=== PATIENT | male | born 1945 | race Caucasian/White ===

== ENCOUNTER 2017-04-21 03:16 | Inpatient (IN) | payer OTHER ==
[~2017-04-21] VITALS: Ht 180.3 cm; Wt 65.3 kg
[2017-04-21] VITALS (7 sets, daily range): BP systolic 99–148; BP diastolic 63–94
[~2017-04-21 03:16] MED LIST: ALBUTEROL2.5 MG/0.5 IH; ALBUTEROL2.5 MG/31; ANORO ELLIPTA1 EACH INH; ATIVAN0.5 MG PO; BUSPIRONE HCL10 MG PO; CEFDINIR300 MG PO; DELSYM30 MG/5 M1 PO; DOXYCYCLINE 10100 M1 PO; DUONEB 2.5-0.5 M3 ML INH; Duoneb 2.5-0.5 Mg/3 INH; FLOMAX0.4 MG PO; FLONASE 0.05%50 MCG NASAL; HYDROCODONE-AP1 EAC6 PO; LEVAQUIN 500 M500 M2 PO; LEVAQUIN 750 M750 MG PO; MSL20MG/ML PO; MUCINEX DM ER1 EAC1 PO; MUCINEX600 MG PO; NASONEB NASAL1 EACH INH; NEXIUM 40 MG CA40 M1 PO; PREDNISONE 10 M10 M1 PO; PREDNISONE 10 M10 MG PO; PREDNISONE 20 M20 MG PO; PROTONIX40 M1 PO; PROVENTIL HFA6.7 G1 INH; PULMICORT FLEX90 MCG INH; SINGULAIR 10 MG10 M1 PO; TESSALON PERLE100 MG PO; VENTOLIN HFA 1818 GM INH; XANAX 0.5 MG0.5 MG PO; ZYRTEC10 M4 PO
[2017-04-21 03:46] LABS: HEMATOCRIT 45.1 % (42.0-52.0); HEMOGLOBIN 14.6 gm/dL (14.0-18.0); MCH 29.5 pg (26.0-34.0); MCHC 32.4 g/dL (28.0-37.0); MCV 90.8 fL (80.0-100.0); MPV 7.8 fl. (7.2-11.1); NUCLEATED RBCS 0 /100WBC; PLATELET COUNT* 268 thou/uL (150-400); RBC 4.97 mil/uL (4.50-6.00); WBC 18.1 thou/uL (4.0-11.0)
[2017-04-21 03:49] LABS: CALCIUM 8.7 mg/dL (8.5-10.1); CREATININE 1.1 mg/dL (0.6-1.3); POTASSIUM 4.4 mmol/L (3.5-5.1)
[2017-04-21 03:53] LABS: ALBUMIN 3.5 g/dL (3.4-5.0); MAGNESIUM 1.6 mg/dL (1.8-2.4); TOTAL BILIRUBIN 0.8 mg/dL (<0.1-1.0); TOTAL PROTEIN 7.2 g/dL (6.4-8.2)
[2017-04-21 04:39] LABS: ABSOLUTE BASOPHILS 0.2 thou/uL (0.0-0.2); ABSOLUTE EOSINOPHILS 0.2 thou/uL (0.0-0.7); ABSOLUTE LYMPHOCYTES 1.6 thou/uL (0.8-5.3); ABSOLUTE MONOCYTES 1.4 thou/uL (0.0-1.2); ABSOLUTE NEUTROPHILS 14.7 thou/uL (1.6-8.1); PLATELET ESTIMATE ADEQUATE; TOXIC GRANULATION 1+
[2017-04-21 04:47] LABS: BE 2.6 mmol/L (-2 to +3); PCO2 46.1 mmHg (35.0-45.0); URINE BILIRUBIN NEGATIVE (Negative); URINE BLOOD 1+ (Negative); URINE CLARITY CLEAR; URINE COLOR YELLOW; URINE GLUCOSE-RANDOM TRACE (Negative); URINE KETONES NEGATIVE (Negative); URINE LEUKOCYTES-REFLEX NEGATIVE (Negative); URINE NITRITE-REFLEX NEGATIVE (Negative); URINE PROTEIN 1+ (Negative); URINE SPECIFIC GRAVITY >= 1.030 (1.005-1.030); pH 7.402 (7.340-7.450)
[2017-04-21 05:15] LABS: BACTERIA-REFLEX 1-9 Few /HPF (None Seen); CASTS None Seen /LPF (None Seen); CRYSTALS None Seen /LPF (None Seen); MUCUS 4-6 Moderate strn/LPF (None Seen); SQUAMOUS 0-3 Few /LPF (0-3); URINE RBC 3-10 Few /HPF (0-2); URINE WBC-REFLEX 0-5 Rare /HPF (0-5)
--- NOTE | 2017-04-21 06:30 | NUR ---
RECEIVED REPORT FROM ER, ADMITTED TO UNIT. O2 ON PER BIPAP WITH FIO2 AT 35%. CONT TO BE TACHYPNIC. TELEMETRY APPLIED SHOWING ST. SEE ADMISSION ASSESSMENT AND HX. WILL CONT TO MONITOR.
--- NOTE | 2017-04-21 07:25 | NUR ---
CHANGE OF SHIFT, BEDSIDE REPORT GIVEN ASSUMED PATIENT CARE PATIENT SEEN AT BEDSIDE REQUESTING RT TREATMENT RT PAGED
--- NOTE | 2017-04-21 10:10 | EKG ---
[place] [address] ELECTROCARDIOGRAM REPORT Name: SHAN GUERRERO JR Room: [address] ADM IN [facility].#: [id number] Admission: 04/21/17 Attend Phys: Lion Wynn Discharge: Date of : 41 Report #: [id number] THIS REPORT FOR: //name// [facility] ED Test Date: 2017-04-21 Test Time: 03:31:49 Pat Name: SHAN GUERRERO Department: Room: [facility] Gender: M Virtual Assistant: TV : 1945 Requested By: Cyndy Pulido Order Number: [id number] MD: Alexis Linn Measurements Intervals [place] Rate: 125 P: 83 IN: 151 QRS: 102 QRSD: 97 T: 72 QT: 297 QTc: 429 Interpretive Statements Sinus tachycardia LAE, consider biatrial enlargement Right axis deviation Baseline wander in lead(s) II,III,aVF Compared to ECG 11/19/2016 20:13:48 Right-axis deviation now present Sinus rhythm no longer present Atrial premature complex(es) no longer present Myocardial infarct finding no longer present Electronically Signed On 04-21-2017 10:09:42 UPHOLSTERY ESTIMATOR by Alexis Linn [email or web address] <ELECTRONICALLY SIGNED> By: Alexis Linn MD, [facility] 04/21/17 1009 0 033 Alexis Linn MD, [facility] /EPI
--- NOTE | 2017-04-21 12:15 | NUR ---
CM ASSESSMENT: Pt is A&O. Known to this CM from previous hospital stay. Pt resides in an apartment and dtr lives with him. Pt stated that he has been doing better at home. CM could look at Pt can tell that he has put on weight. Pt continues to wear his trilogy and home o2, provided through [employer]. Pt has a walker, cane and wc at home that he can use as needed. Pt states that he is still astranged from his son and hasn't seen his grandkids in several months. Current with [facility], CM will update date [facility] p:[phone] f:[phone]. Hx of HH with [facility]. Hx of skilled at [facility]. Pt has a supportive ex and dtr that are involved in POC. Following for dc needs.
[2017-04-21] MEDS ORDERED: PEPCID20 MG PO (12:19)
[2017-04-22 00:05] VITALS: BP 118/70
[2017-04-22 04:20] VITALS: BP 115/66
[2017-04-22 05:27] LABS: ABSOLUTE LYMPHOCYTES 0.3 thou/uL (0.8-5.3); ABSOLUTE MONOCYTES 0.1 thou/uL (0.0-1.2); ABSOLUTE NEUTROPHILS 8.6 thou/uL (1.6-8.1); BASOPHILS 0.1 %; HEMATOCRIT 40.7 % (42.0-52.0); HEMOGLOBIN 13.6 gm/dL (14.0-18.0); LYMPHOCYTES 3.5 %; MCH 30.1 pg (26.0-34.0); MCHC 33.5 g/dL (28.0-37.0); MCV 89.8 fL (80.0-100.0); MONOCYTES 1.4 %; MPV 7.7 fl. (7.2-11.1); NUCLEATED RBCS 0 /100WBC; PLATELET COUNT* 242 thou/uL (150-400); RBC 4.53 mil/uL (4.50-6.00); RDW-CV 13.3 % (10.5-14.5); WBC 9.1 thou/uL (4.0-11.0)
[2017-04-22 05:36] LABS: CALCIUM 8.7 mg/dL (8.5-10.1); CREATININE 0.9 mg/dL (0.6-1.3); MAGNESIUM 2.3 mg/dL (1.8-2.4); POTASSIUM 4.4 mmol/L (3.5-5.1); TOTAL PROTEIN 6.1 g/dL (6.4-8.2)
--- NOTE | 2017-04-22 05:51 | NUR ---
PT IS ABLE TO COMMUNICATE HIS NEEDS TO STAFF EFFECTIVELY. HE HAS DENIED THE NEED FOR PAIN MEDICATION UP TO THIS TIME. PT WORE BIPAP FOR APPROXIMATELY 5 HRS OVERNIGHT BEFORE REQUESTING TO HAVE IT TAKEN OFF.
[2017-04-22 06:23] LABS: BE 2.5 mmol/L (-2 to +3); HCO3 26.1 mmol/L (22.0-26.0); PO2 84.2 mmHg (75.0-100.0); pH 7.466 (7.340-7.450)
--- NOTE | 2017-04-22 07:30 | NUR ---
CHANGE OF SHIFT, BEDSIDE REPORT GIVEN PATIENT SEEN AT BEDSIDE PATIENT SITTING UP IN BED, NO REQUESTS ASSUMED PATIENT CARE
[2017-04-22 08:00] VITALS: BP 106/69
[2017-04-22 12:00] VITALS: BP 110/64
[2017-04-22 17:00] VITALS: BP 126/81
--- NOTE | 2017-04-22 19:40 | NUR ---
PATIENT REMAINS A AND O X 4 SR LUNGS COARSE/WHEEZES/DIM O2 3L NC O2 SATS MID 90S BIPAP AT HS GOOD APPETITE LAST BM TODAY GOOD UO USES URINAL YELLOW URINE UP WITH STANDBY SOA WITH EXERTION NO C/O PAIN TODAY REF SCDS IV 20 GA SL L AC CALL LIGHT IN REACH AND INSTRUCTION GIVEN AND FOLLOWED NEW ORDERS TODAY FOR CT OF CHEST
[2017-04-22 20:12] VITALS: BP 126/75
[2017-04-23] VITALS (7 sets, daily range): BP systolic 94–154; BP diastolic 59–84
[2017-04-23 06:15] LABS: ABSOLUTE LYMPHOCYTES 0.2 thou/uL (0.8-5.3); ABSOLUTE MONOCYTES 0.4 thou/uL (0.0-1.2); ABSOLUTE NEUTROPHILS 11.6 thou/uL (1.6-8.1); HEMATOCRIT 36.7 % (42.0-52.0); HEMOGLOBIN 12.1 gm/dL (14.0-18.0); LYMPHOCYTES 1.8 %; MCH 29.8 pg (26.0-34.0); MCHC 33.1 g/dL (28.0-37.0); MONOCYTES 3.3 %; MPV 7.9 fl. (7.2-11.1); NUCLEATED RBCS 0 /100WBC; PLATELET COUNT* 237 thou/uL (150-400); POLYS 94.9 %; RBC 4.08 mil/uL (4.50-6.00); RDW-CV 13.1 % (10.5-14.5); WBC 12.2 thou/uL (4.0-11.0)
[2017-04-23 06:42] LABS: ALBUMIN 2.8 g/dL (3.4-5.0); CALCIUM 8.8 mg/dL (8.5-10.1); CREATININE 0.9 mg/dL (0.6-1.3); POTASSIUM 4.4 mmol/L (3.5-5.1); TOTAL BILIRUBIN 0.4 mg/dL (<0.1-1.0); TOTAL PROTEIN 5.7 g/dL (6.4-8.2)
--- NOTE | 2017-04-23 07:58 | NUR ---
PT IS ABLE TO COMMUNICATE HIS NEEDS TO STAFF EFFECTIVELY. CURRENT PAIN MEDICATION REGIMEN HAS BEEN ADEQUATE FOR CONTROLLING HIS PAIN UP TO THIS TIME. PT WORE BIPAP FOR APPROXIMAYELY 6 HRS OVERNIGHT. POSSIBLE DISCHARGE TODAY OR TOMORROW.
[2017-04-24 04:20] VITALS: BP 112/60
[2017-04-24 05:25] LABS: ABSOLUTE LYMPHOCYTES 0.2 thou/uL (0.8-5.3); ABSOLUTE MONOCYTES 0.3 thou/uL (0.0-1.2); ABSOLUTE NEUTROPHILS 11.6 thou/uL (1.6-8.1); HEMOGLOBIN 12.2 gm/dL (14.0-18.0); LYMPHOCYTES 1.5 %; MCH 29.7 pg (26.0-34.0); MCV 90.1 fL (80.0-100.0); MONOCYTES 2.7 %; NUCLEATED RBCS 0 /100WBC; PLATELET COUNT* 266 thou/uL (150-400); POLYS 95.8 %; RBC 4.11 mil/uL (4.50-6.00); RDW-CV 13.5 % (10.5-14.5); WBC 12.1 thou/uL (4.0-11.0)
[2017-04-24 05:45] LABS: ALBUMIN 2.8 g/dL (3.4-5.0); CALCIUM 8.9 mg/dL (8.5-10.1); CREATININE 0.9 mg/dL (0.6-1.3); POTASSIUM 4.2 mmol/L (3.5-5.1); TOTAL BILIRUBIN 0.4 mg/dL (<0.1-1.0); TOTAL PROTEIN 6.2 g/dL (6.4-8.2)
--- NOTE | 2017-04-24 07:58 | NUR ---
PT IS ABLE TO COMMUNICATE HIS NEEDS TO STAFF EFFECTIVELY. CURRENT PAIN MEDICATION REGIMEN HAS BEEN ADEQUATE FOR CONTROLLING HIS PAIN UP TO THIS TIME. PT WORE BIPAP OVERNIGHT. LIKELY DISCHARGE TODAY.
[2017-04-24 08:15] VITALS: BP 136/73
--- NOTE | 2017-04-24 09:37 | NUR ---
CM contacted Rhiannon at [facility], informed that Pt reports having issues with his Trilogy, per Rhiannon, RT will reach out to Pt to attempt to remedy the issues that he is having with his trilogy. Anticipate dc to home today. Following.
[2017-04-24 11:38] VITALS: BP 124/65
--- NOTE | 2017-04-24 12:16 | NUR ---
ASSUMED PT CARE AT 0730, FULL ASSESMENT DONE CHARTED. PT A/O X4, C/O PAIN IN LOW BACK, DOES NOT REQUEST PAIN MEDS. UP SBA IN ROOM, SATS 94% ON 3L, CONCERNED ABOUT HOME BIPAP NOT WORKING, WORKING WITH CM TO HAVE [facility] COME LOOK AT IT BEFORE PT DISCHARGES. VSS, SR ON THE MONITOR. FALL PRECATUIOINS IN PLACE, CALL LIGHT IN REACH. WILL CONTINUE WITH PLAN OF CARE.
[2017-04-24] MEDS ORDERED: LEVAQUIN 750 M750 MG PO (13:52)
[2017-04-24] MEDS ORDERED: NYSTATIN TOP (13:52)
[2017-04-24] MEDS ORDERED: PREDNISONE 10 M10 MG PO (13:53)
[2017-04-24 13:59] VITALS: BP 124/65
== END 2017-04-24 14:31 | disposition home or self-care (01) | DRG 189 ==
LOC: M.ERS 03:16 → M.2W 04:41 → M.TBA-ER 04:41 → M.2W 05:13
PROVIDERS: Personal Emergency Response Attendant; ADMIT Internal Medicine
PROC: 5A09357 Assistance with Respiratory Ventilation, Less than 24 Consecutive Hours, Continuous Positive Airway Pressure (ICD-10-PCS; principal; 2017-04-21)
PROC: 5A09357 Assistance with Respiratory Ventilation, Less than 24 Consecutive Hours, Continuous Positive Airway Pressure (ICD-10-PCS; 2017-04-22)
PROC: 5A09357 Assistance with Respiratory Ventilation, Less than 24 Consecutive Hours, Continuous Positive Airway Pressure (ICD-10-PCS; 2017-04-23)
DX: J96.22 Acute and chronic respiratory failure with hypercapnia (principal); J44.1 Chronic obstructive pulmonary disease with (acute) exacerbation; E44.0 Moderate protein-calorie malnutrition; R65.10 Systemic inflammatory response syndrome (SIRS) of non-infectious origin without acute organ dysfunction; J96.21 Acute and chronic respiratory failure with hypoxia; G89.29 Other chronic pain; K21.9 Gastro-esophageal reflux disease without esophagitis; E83.42 Hypomagnesemia; M54.9 Dorsalgia, unspecified; Z68.20 Body mass index [BMI] 20.0-20.9, adult; Z79.899 Other long term (current) drug therapy; Z82.49 Family history of ischemic heart disease and other diseases of the circulatory system; Z87.891 Personal history of nicotine dependence

== ENCOUNTER 2017-06-10 01:12 | Inpatient (IN) | payer OTHER ==
[2017-06-10] VITALS (7 sets, daily range): BP systolic 112–138; BP diastolic 71–87
[~2017-06-10] VITALS: Ht 175.3 cm; Wt 60.8 kg
[~2017-06-10 01:12] MED LIST changes: +NYSTATIN TOP; +PEPCID20 MG PO
[2017-06-10 01:41] LABS: HEMATOCRIT 44.2 % (42.0-52.0); HEMOGLOBIN 14.7 gm/dL (14.0-18.0); MCHC 33.2 g/dL (28.0-37.0); MCV 90.3 fL (80.0-100.0); MPV 7.8 fl. (7.2-11.1); NUCLEATED RBCS 0 /100WBC; PLATELET COUNT* 243 thou/uL (150-400); RDW-CV 14.2 % (10.5-14.5); WBC 16.3 thou/uL (4.0-11.0)
[2017-06-10 01:59] LABS: APTT 26.5 Seconds (25.0-31.3); INR 1.1; PROTIME 10.5 Seconds (9.20-11.50)
[2017-06-10 02:01] LABS: ANION GAP 12 mmol/L (7-16); BUN 20 mg/dL (7-18); CALCIUM 9.6 mg/dL (8.5-10.1); CHLORIDE 103 mmol/L (98-107); CO2 28 mmol/L (21-32); GLUCOSE 119 mg/dL (70-99); POTASSIUM 4.3 mmol/L (3.5-5.1); SODIUM 143 mmol/L (136-145)
[2017-06-10] MEDS ORDERED: PREDNISONE 5 MG5 M1 PO (02:02)
[2017-06-10 02:15] LABS: ALBUMIN 3.8 g/dL (3.4-5.0); ALKALINE PHOSPHATASE 60 U/L (46-116); LIPASE 52 U/L (73-393); MAGNESIUM 1.9 mg/dL (1.8-2.4); NT-PRO BRAIN NAT PEPTIDE 132 pg/mL (<300); SGOT 20 U/L (15-37); SGPT 32 U/L (30-65); TOTAL BILIRUBIN 0.8 mg/dL (<0.1-1.0); TOTAL PROTEIN 7.6 g/dL (6.4-8.2); TROPONIN-I LEVEL <0.06 ng/mL (<0.06)
[2017-06-10 03:08] LABS: ABSOLUTE LYMPHOCYTES 0.8 thou/uL (0.8-5.3); ABSOLUTE MONOCYTES 1.1 thou/uL (0.0-1.2); ABSOLUTE NEUTROPHILS 14.3 thou/uL (1.6-8.1)
[2017-06-10 03:09] LABS: PLATELET ESTIMATE ADEQUATE
--- NOTE | 2017-06-10 08:37 | EKG ---
[place] [address] ELECTROCARDIOGRAM REPORT Name: SHAN GUERRERO JR Room: [address] IN [facility].#: [id number] Admission: 06/10/17 Attend Phys: Lamont Conrad MD Discharge: Date of : 41 Report #: [id number] THIS REPORT FOR: //name// [facility] ED Test Date: 2017-06-10 Test Time: 01:22:02 Pat Name: SHAN GUERRERO Department: Room: Gender: Aboriginal Liaison Officer: JAISON Payne : 1945 Requested By: David Ortiz Order Number: [id number] MD: Eduin Carnes Measurements Intervals [place] Rate: 108 P: 96 ID: 133 QRS: 109 QRSD: 89 T: 72 QT: 323 QTc: 433 Interpretive Statements Sinus tachycardia Right axis deviation Compared to ECG 04/21/2017 03:31:49 No significant changes Electronically Signed On 06-10-2017 8:36:58 CDT by Eduin Carnes [email or web address] <ELECTRONICALLY SIGNED> By: Eduin Carnes MD, [facility] 06/10/17 0836 012 012 Eduin Carnes MD, FACC /EPI
--- NOTE | 2017-06-10 19:25 | NUR ---
RECEIVED REPORT AND ASSUMED CARE AT 0820. PT WAS TRANSFERED FROM ER TO RM 202 BY NURSING STAFF. VSS, PT MED SURG STATUS. PT ON 4L NC DURING THE DAY. PT BROUGHT HIS TRILOGY BREATHING MACHINE WITH HIM AND IS IN HIS ROOM FOR WEAR AT [facility]. PT SCREENED POSITIVE FOR SEPSIS, NOTIFIED AND REPORTED BACK TO THIS NURSE THAT THE PT IS NOT SEPTIC, POS SCREEN IS RESULT OF COPD EXACERBATION. PT IS UP WITH ASSIST TO BSC. SOA ON EXERTION. PLAN OF CARE DISCUSSED WITH PT, VERBALIZED UNDERSTANDING. BED IN LOWEST POSITION, CALL LIGHT WITHIN REACH.NURSING WILL CONTINUE TO MONITOR
--- NOTE | 2017-06-11 02:16 | NUR ---
ASSUMED PT CARE AT 19:15 . P IS ALERT AWAKE ORIENTED X4. VITAL SIGNS TAKEN RESULTS ARE WITHIN NORMAL LIMIT. PT IS PLEASANT, MED/SURG ON 3 L NC SATURATION IS 96. SAYS HE WANTS TO WEAR HIS BIPAP MACHINE AT NIGHT. NO COMPLAIN ABOUT PAIN AT THIS TIME. HE REQUESTED SOME IMODIUM BECAUSE HE IS PASSING LOT OF FLATUS AND DOES NOT WANT TO EXPERIENCE DIARRHEA. IMODIUM WAS ADMINISTERED ORDERED BY LAWYERS. ASSESSMENT WAS PERFORMED. REFER TO CHART. IV LINE IS PATENT. MEDICATION WAS ADMINISTERED ORDERED AND TRILOGY MACHINE WAS CONNECTED TO PRIOR TO BED TIME. PT IS NOW RESTING IN BED WITH TRILOGY MACHINE DELIVERING 3 L OF OXYGNEN.
[2017-06-11 04:29] LABS: HEMATOCRIT 40.8 % (42.0-52.0); HEMOGLOBIN 13.9 gm/dL (14.0-18.0); MCH 30.1 pg (26.0-34.0); MCV 88.5 fL (80.0-100.0); RBC 4.61 mil/uL (4.50-6.00); RDW-CV 14.1 % (10.5-14.5); WBC 13.2 thou/uL (4.0-11.0)
[2017-06-11 08:00] VITALS: BP 112/65
--- NOTE | 2017-06-11 11:14 | NUR ---
ASSUMED CARE OF PT AT 0730. PT RESTING IN BED. PT A&0X4, DENIES ANY PAIN AT THIS TIME. PT MED SURG STATUS. PT ON 2L NC SAT 96%. PT STATES HE HAS SHORT OF BREATH WITH ACTIVITY AND TAKES AWHILE TO GET HIS BREATH BACK. PT HAD REPEAT CXR THIS AM-REFER TO RESULTS. DR ASHLEY HERE TO SEE PT. IV STEROIDS DECREASED TO BID. PT RECEIVING IV ABX WELL. PT UP SBA TO BATHROOM. PT GOAL IS TO INCREASE ACTIVITY- AMBULATE IN [place] AND UP TO CHAIR FOR MEALS. AM ASSESSMENT CHARTED. MEDICATIONS PER APR. PT REPOSITIONS SELF. HOURLY ROUNDING OBSERVED. BED IN LOW POSITION. CALL LIGHT WITHIN REACH. WILL CONTINUE PLAN OF CARE.
[2017-06-11 15:34] VITALS: BP 109/68
--- NOTE | 2017-06-11 17:20 | NUR ---
NO ACUTE CHANGES THROUGHOUT SHIFT. REFER TO CHARTING. PT FAMILY AT BEDSIDE THIS AFTERNOON. PT UP WITH 1 ASSIST TO BATHROOM-PT AMBULATED TO BATHROOM TODAY MULTIPLE TIMES, PT GETS SHORT OF BREATH WITH EXERTION. PT AMBULATED IN ROOM WITH NURSING STANDAY-TOLERATED FAIR. CONTINUES TO BE ON 2-3L NC SAT UPPER 90'S. PT MED SURG STATUS. POSSIBLE DISCHARGE HOME TOMORROW. MEDICATIONS PER APR. PT REPOSITIONS SELF. HOURLY ROUNDING OBSERVED. BED IN LOW POSITION. CALL LIGHT WITHIN REACH. WILL CONTINUE PLAN OF CARE.
[2017-06-11 20:00] VITALS: BP 114/70
--- NOTE | 2017-06-11 23:22 | NUR ---
ASSUMED PT CARE AT 19:15 . RECEIVED REPORT FROM NURSE. PT IS ALERT AWAKE ORIETED X 4. VITAL SIGNS WITHIN NORMAL LIMIT. PT DOES NOT COMPLAIN OF PAIN A THIS MOMENT. OXYGENATION IS 96 % ON 3 L NC. BRETAHING PATTERN IS REGULAR .ASSESSMENT PERFORMED. REFER TO CHART. MEDICATION WERE AMINISTERED. PT IS NOT WEARING BIPAP MACHINE AND RESTING IN BED. MED/SURG PT. WILL CONTINUE TO MONITOR
[2017-06-12 00:06] VITALS: BP 105/68
[2017-06-12 05:52] LABS: CALCIUM 8.6 mg/dL (8.5-10.1); CREATININE 0.8 mg/dL (0.6-1.3); MAGNESIUM 2.2 mg/dL (1.8-2.4); POTASSIUM 4.2 mmol/L (3.5-5.1)
[2017-06-12] MEDS ORDERED: ADVAIR HFA 230M12 GM INH (08:01)
[2017-06-12] MEDS ORDERED: AZITHROMYCIN500 MG PO (08:01)
[2017-06-12] MEDS ORDERED: CEFDINIR300 MG PO (08:01)
[2017-06-12] MEDS ORDERED: PREDNISONE 10 M10 M1 PO (08:01)
[2017-06-12 08:03] VITALS: BP 117/67
[2017-06-12 09:01] VITALS: BP 117/67
--- NOTE | 2017-06-12 09:20 | NUR ---
Pt known to this CM. Pt discharging to home today, orders faxed to [facility] per Pt's request. Pt continues to use a walker and trilogy at home. Pt also has a wc that he can use if needed. Pt's dtr continues to reside with him and assist as needed. Dtr to corn picker Pt today.
--- NOTE | 2017-06-12 09:30 | NUR ---
ASSUMED CARE OF PATIENT AFTER REPORT THIS MORNING. PATIENT AWAKE, ALERT, AND ORIENTED APPROPRIATELY. PHYSICAL ASSESSMENT COMPLETED AND CHARTED. NO COMPLAINTS OF PAIN. GIVEN SCHEDULED MEDICATIONS, SEE EMAR FOR DOCUMENTATION. VITAL SIGNS STABLE. OXYGEN SATURATION WITHIN NORMAL LIMITS ON 3 LPM PER NASAL CANULA. PATIENT TRANSFERS AND AMBULATES WITH ASSISTANCE FROM STAFF. USES CALL LIGHT APPROPRIATELY. DENIES NEEDS AT THIS TIME. CALL LIGHT WITHIN REACH. NURSING WILL CONTINUE TO MONITOR.
--- NOTE | 2017-06-12 13:03 | NUR ---
RECEIVED ORDERS TO DISCHARGE PATIENT HOME WITH HOME HEALTH. DISCHARGE PAPERWORK COMPLETED AND DISCUSSED WITH PATIENT. SIGNED BY ALL APPROPRIATE PARTIES. GIVEN PRESCRIPTIONS AND INFORMATION REGARDING THEM. IV DISCONTINUED. PATIENT DISCHARGED AT 1300 WITH DAUGHTER. ESCORTED TO FRONT DOOR VIA WHEELCHAIR BY THIS NURSE.
== END 2017-06-12 13:15 | disposition home health service (06) | DRG 189 ==
LOC: M.ERS 01:12 → M.2W 02:22 → M.TBA-ER 02:22 → M.2W 08:18
PROVIDERS: Family Medicine; ADMIT Internal Medicine
PROC: 5A09357 Assistance with Respiratory Ventilation, Less than 24 Consecutive Hours, Continuous Positive Airway Pressure (ICD-10-PCS; principal; 2017-06-10)
DX: J96.21 Acute and chronic respiratory failure with hypoxia (principal); J44.1 Chronic obstructive pulmonary disease with (acute) exacerbation; J44.0 Chronic obstructive pulmonary disease with (acute) lower respiratory infection; J20.9 Acute bronchitis, unspecified; G89.29 Other chronic pain; M25.569 Pain in unspecified knee; M25.519 Pain in unspecified shoulder; Z82.49 Family history of ischemic heart disease and other diseases of the circulatory system; Z87.891 Personal history of nicotine dependence; Z79.899 Other long term (current) drug therapy

== ENCOUNTER 2017-07-15 00:12 | Emergency (ER) | payer OTHER ==
[~2017-07-15] VITALS: Ht 175.3 cm; Wt 63.5 kg
[~2017-07-15 00:12] MED LIST changes: +ADVAIR HFA 230M12 GM INH; +AZITHROMYCIN500 MG PO; +PREDNISONE 5 MG5 M1 PO
[2017-07-15] MEDS ORDERED: MYRBETRIQ25 MG PO (00:28)
[2017-07-15 01:10] LABS: HEMATOCRIT 39.7 % (42.0-52.0); HEMOGLOBIN 13.1 gm/dL (14.0-18.0); MCH 29.8 pg (26.0-34.0); MCHC 33.1 g/dL (28.0-37.0); MCV 90.3 fL (80.0-100.0); MPV 6.8 fl. (7.2-11.1); NUCLEATED RBCS 0 /100WBC; PLATELET COUNT* 249 thou/uL (150-400); RDW-CV 14.4 % (10.5-14.5); WBC 6.7 thou/uL (4.0-11.0)
[2017-07-15 01:19] LABS: CALCIUM 8.9 mg/dL (8.5-10.1); CREATININE 0.8 mg/dL (0.6-1.3)
[2017-07-15 01:24] LABS: ALBUMIN 2.8 g/dL (3.4-5.0); TOTAL BILIRUBIN 0.3 mg/dL (<0.1-1.0); TOTAL PROTEIN 6.6 g/dL (6.4-8.2)
[2017-07-15 02:27] VITALS: BP 127/78
[2017-07-15 02:27] LABS: ABSOLUTE BASOPHILS 0.1 thou/uL (0.0-0.2); ABSOLUTE EOSINOPHILS 0.1 thou/uL (0.0-0.7); ABSOLUTE LYMPHOCYTES 0.7 thou/uL (0.8-5.3); ABSOLUTE MONOCYTES 0.3 thou/uL (0.0-1.2); ABSOLUTE NEUTROPHILS 5.4 thou/uL (1.6-8.1); ANISOCYTOSIS Occasional; PLATELET ESTIMATE ADEQUATE; TOXIC GRANULATION 1+
--- NOTE | 2017-07-15 11:29 | EKG ---
[place] [address] ELECTROCARDIOGRAM REPORT Name: SHAN GUERRERO JR [id number] Admission: 07/15/17 Attend Phys: Discharge: 07/15/17 Date of : 41 Report #: [id number] THIS REPORT FOR: //name// [facility] ED Test Date: 2017-07-15 Test Time: 00:19:30 Pat Name: SHAN IBARRAESTUARDO Department: Room: Gender: M Hardware Installation Coordinator: [place] : 1945 Requested By: Cyndy Pulido Order Number: [id number] MD: Alexis Linn Measurements Intervals [place] Rate: 90 P: 80 [place]: 151 QRS: 98 QRSD: 87 T: 69 QT: 343 QTc: 420 Interpretive Statements Sinus rhythm Right axis deviation Abnormal R-wave progression, late transition Compared to ECG 06/10/2017 01:22:02 Sinus tachycardia no longer present Electronically Signed On 07-15-2017 11:28:45 CDT by Alexis Linn [email or web address] <ELECTRONICALLY SIGNED> By: Alexis Linn MD, [facility] 07/15/17 1128 0019 Alexis Linn MD, FACC /EPI
== END 2017-07-15 02:53 | disposition home or self-care (01) ==
LOC: M.ERS 00:12
PROVIDERS: Personal Emergency Response Attendant
DX: J44.1 Chronic obstructive pulmonary disease with (acute) exacerbation (principal); G89.29 Other chronic pain; M54.9 Dorsalgia, unspecified; M25.519 Pain in unspecified shoulder; M25.569 Pain in unspecified knee

== ENCOUNTER 2017-08-21 11:05 | Inpatient (IN) | payer OTHER ==
[~2017-08-21] VITALS: Ht 177.8 cm; Wt 63.0 kg
[~2017-08-21 11:05] MED LIST changes: +MYRBETRIQ25 MG PO
[2017-08-21 11:27] LABS: HEMATOCRIT 41.6 % (42.0-52.0); HEMOGLOBIN 13.6 gm/dL (14.0-18.0); MCH 29.7 pg (26.0-34.0); MCHC 32.7 g/dL (28.0-37.0); MCV 90.6 fL (80.0-100.0); MPV 6.9 fl. (7.2-11.1); NUCLEATED RBCS 0 /100WBC; PLATELET COUNT* 340 thou/uL (150-400); RBC 4.59 mil/uL (4.50-6.00); RDW-CV 13.6 % (10.5-14.5); WBC 13.5 thou/uL (4.0-11.0)
[2017-08-21 11:34] LABS: ANION GAP 2 mmol/L (7-16); BUN 13 mg/dL (7-18); CALCIUM 8.8 mg/dL (8.5-10.1); CHLORIDE 105 mmol/L (98-107); CO2 33 mmol/L (21-32); CREATININE 0.7 mg/dL (0.6-1.3); GLUCOSE 97 mg/dL (70-99); POTASSIUM 3.5 mmol/L (3.5-5.1); SODIUM 140 mmol/L (136-145)
[2017-08-21 11:44] LABS: ALBUMIN 2.9 g/dL (3.4-5.0); ALKALINE PHOSPHATASE 72 U/L (46-116); LIPASE 90 U/L (73-393); MAGNESIUM 1.6 mg/dL (1.8-2.4); NT-PRO BRAIN NAT PEPTIDE 158 pg/mL (<300); SGOT 17 U/L (15-37); SGPT 25 U/L (30-65); TOTAL BILIRUBIN 0.6 mg/dL (<0.1-1.0); TROPONIN-I LEVEL <0.06 ng/mL (<0.06)
[2017-08-21 13:26] LABS: ABSOLUTE BASOPHILS 0.1 thou/uL (0.0-0.2); ABSOLUTE EOSINOPHILS 0.1 thou/uL (0.0-0.7); ABSOLUTE LYMPHOCYTES 0.7 thou/uL (0.8-5.3); ABSOLUTE MONOCYTES 0.9 thou/uL (0.0-1.2); ABSOLUTE NEUTROPHILS 11.6 thou/uL (1.6-8.1)
[2017-08-21 13:28] LABS: ANISOCYTOSIS 1+; PLATELET ESTIMATE ADEQUATE
[2017-08-21 14:30] VITALS: BP 105/68
[2017-08-21 15:00] VITALS: BP 114/80
--- NOTE | 2017-08-21 15:00 | NUR ---
ADMIT NOTE - PT ADMITTED FROM ER WITH COPD EXAC AND PNEUMONIA. STATED HE WOKE UP THIS AM WITH DYSPNEA AND BROUGHT BY AMBULANCE. IV IN LT FA SL. HOME O2 AT 3L NC AND ADMITTED WITH 3L NC. DTR BROUGHT HOME CPAP MACHINE. ORIENTED TO ROOM AND CALL LIGHT. NO QUESTIONS.
[2017-08-21 21:00] VITALS: BP 118/68
[2017-08-22 00:04] VITALS: BP 124/71
[2017-08-22 03:39] VITALS: BP 131/74
[2017-08-22 05:05] LABS: HEMATOCRIT 36.8 % (42.0-52.0); HEMOGLOBIN 12.2 gm/dL (14.0-18.0); MCH 30.2 pg (26.0-34.0); MCHC 33.1 g/dL (28.0-37.0); MCV 91.3 fL (80.0-100.0); MPV 7.6 fl. (7.2-11.1); RBC 4.03 mil/uL (4.50-6.00); RDW-CV 13.8 % (10.5-14.5); WBC 7.4 thou/uL (4.0-11.0)
[2017-08-22 05:23] LABS: CREATININE 0.7 mg/dL (0.6-1.3); MAGNESIUM 1.9 mg/dL (1.8-2.4)
[2017-08-22 05:29] LABS: POTASSIUM 4.6 mmol/L (3.5-5.1)
--- NOTE | 2017-08-22 06:52 | NUR ---
PATIENT HAS SLEPT OFF AND ON BUT RESTLESS DURING THE NIGHT. VSS ON 3L 02 VIA NASAL CANNULA. NO C/O PAIN. CPAP ON DURING THE NIGHT. RESPIRATORY TREATMENTS GIVEN FROM RESPIRATORY DEPT. MEDICATIONS GIVEN AND CHARTED. IV IN LEFT FOREARM-NS @ 100ML/HR. PATIENT INSTRUCTED TO USE CALL LIGHT WHEN NEEDING ASSISTANCE. HOURLY ROUNDS MADE. WILL CONTINUE WITH PLAN OF CARE AND NURSING TO MONITOR.
[2017-08-22 07:38] LABS: URINE BILIRUBIN NEGATIVE (Negative); URINE BLOOD TRACE (Negative); URINE CLARITY CLEAR; URINE COLOR YELLOW; URINE GLUCOSE-RANDOM TRACE (Negative); URINE KETONES NEGATIVE (Negative); URINE LEUKOCYTES NEGATIVE (Negative); URINE NITRITE NEGATIVE (Negative); URINE PROTEIN NEGATIVE (Negative); URINE UROBILINOGEN 0.2 E.U./dl (0.2-1.0)
[2017-08-22 11:01] VITALS: BP 114/70
--- NOTE | 2017-08-22 13:37 | EKG ---
[place] [address] ELECTROCARDIOGRAM REPORT Name: SHAN GUERRERO JR Room: [address] IN [facility]#: [id number] Admission: 08/21/17 Attend Phys: Minerva Joseph MD Discharge: Date of : 41 Report #: [id number] THIS REPORT FOR: //name// [facility] ED Test Date: 2017-08-21 Test Time: 11:09:06 Pat Name: SHAN GUERRERO Department: Room: Gender: Agile Scrum Coach: Elmer WILEY : 1945 Requested By: Karan Linton Order Number: [id number] MD: Joseph Brown Measurements Intervals [place] Rate: 111 P: 74 [place]: 131 QRS: 105 QRSD: 109 T: 47 QT: 311 QTc: 423 Interpretive Statements Sinus tachycardia Left posterior fascicular block Abnormal R-wave progression, late transition Compared to ECG 07/15/2017 00:19:30 Left posterior fascicular block now present Sinus rhythm no longer present Right-axis deviation no longer present Electronically Signed On 08-22-2017 13:37:43 CDT by Joseph Brown [email or web address] <ELECTRONICALLY SIGNED> By: Joseph Brown MD, FACC 08/22/17 1337 1109 1109 Joseph Brown MD, FAC /EPI
[2017-08-22 15:46] VITALS: BP 131/74
--- NOTE | 2017-08-22 16:11 | NUR ---
SPOKE WITH PT.AND DAUGHTER,KEVIN. KEVIN LIVES WITH PT. PT.WAS ALERT AND ORIENTED. HE SAID HE IS FAIRLY INDEPENDENT. THINGS TAKE HIM LONGER BECAUSE OF HIS SOA WITH HIS COPD. HAS O2 AND TRILOGY THROUGH [facility]. HE NO LONGER HAS HOME HEALTH. HE JUST HAS [facility]. HE REALLY LIKES THE PROFESSOR OF COMMUNICATION (KARY) AND COIN COLLECTOR. HE PLANS TO RETURN HOME AT DISCHARGE AND CONTINUE WITH PALLIATIVE CARE.
--- NOTE | 2017-08-22 18:08 | NUR ---
PATIENT HAS BEEN ALERT AND ORIENTED TODAY. UP IN ROOM ENCOURAGED TO GET AND WALK AROUND PATIENT IS ANGRY ABOUT THE ENCOURAGEMENT TO GET UP. VITAL SIGNS HAVE BEEN STABLE ON 3 LITERS OF OXYGEN. NO COMPLAINTS OF ANY PAIN TODAY, CALL LIGHT IS IN REACH, WILL CONTINUE TO MONITOR.
[2017-08-22 21:20] VITALS: BP 137/67
[2017-08-23] VITALS: BP 130/78
[2017-08-23 04:37] VITALS: BP 118/70
[2017-08-23 04:58] LABS: ABSOLUTE LYMPHOCYTES 0.3 thou/uL (0.8-5.3); ABSOLUTE MONOCYTES 0.3 thou/uL (0.0-1.2); ABSOLUTE NEUTROPHILS 15.4 thou/uL (1.6-8.1); BASOPHILS 0.1 %; HEMATOCRIT 39.7 % (42.0-52.0); HEMOGLOBIN 12.7 gm/dL (14.0-18.0); MCH 29.2 pg (26.0-34.0); MCV 91.3 fL (80.0-100.0); MONOCYTES 1.8 %; MPV 7.8 fl. (7.2-11.1); NUCLEATED RBCS 0 /100WBC; PLATELET COUNT* 328 thou/uL (150-400); POLYS 96.1 %; RBC 4.35 mil/uL (4.50-6.00); RDW-CV 13.6 % (10.5-14.5)
--- NOTE | 2017-08-23 08:24 | NUR ---
PATIENT HAS SLEPT OFF AND ON DURING THE NIGHT. VSS ON 3L 02 VIA NASAL CANNULA. CPAP ON AT NIGHT WHILE SLEEPING. LUNGS ARE DIMINISHED WITH SLIGHT WHEEZING. PATIENT IS UP WITH SBA AND USES BEDSIDE URINAL DURING THE NIGHT. MEDICATIONS GIVEN ORDERED AND CHARTED. PATIENT INSTRUCTED TO USE CALL LIGHT WHEN NEEDING ASSISTANCE. HOURLY ROUNDS MADE. WILL CONTINUE WITH PLAN OF CARE AND NURSING TO MONITOR.
[2017-08-23 09:20] VITALS: BP 130/86
--- NOTE | 2017-08-23 17:07 | NUR ---
ASSUMED CARE OF PATIENT AFTER MORNING REPORT. ALERT AND ORIENTED X4. ASSESSMENT COMPLETED AND CHARTED. VSS ON 3 LITERS 02. PATIENT HAS HAS NO COMPLAINTS OF PAIN THIS SHIFT. SOA UPON EXERTION BUT STABALIZES WITH REST. ANTIBIOTICS INFUSED ORDERED. IV INFILTRATED IN THE LEFT FOREARM, NEW LINE STARTED IN THE RIGHT FOREARM, REMAINS PATENT WITH FLUSHES. NO COMPLAINTS AT THIS TIME, RESTING COMFORTABLY IN BED AT TIS TIME. HOURLY ROUNDS MAINTAINED, CALL LIGHT IN REACH., NURSING WILL CONTINUE TO MONITOR.
[2017-08-23 17:41] VITALS: BP 133/82
[2017-08-24] VITALS: BP 126/77
--- NOTE | 2017-08-24 06:58 | NUR ---
PT SLEPT FOR ABOUT 5 HOURS WITH TRILOGY ON OVERNIGHT. RT TX GIVEN ORDERED. USING URINAL TO VOID OVERNIGHT. O2 3L. KHAN. RFA SL. DENIES PAIN AND PROBLEMS. NO LABS THIS MORNING. ANTICIPATING DISCHARGE HOME TODAY. ABLE TO USE CALL LITE AND MAKE NEEDS KNOWN.
[2017-08-24] MEDS ORDERED: PREDNISONE 10 M10 MG PO (08:45)
[2017-08-24] MEDS ORDERED: LEVAQUIN 500 M500 M3 PO (08:45)
[2017-08-24 09:36] VITALS: BP 114/64
[2017-08-24 11:03] VITALS: BP 114/64
--- NOTE | 2017-08-24 14:31 | NUR ---
NOTIFIED JERRY/[facility] THAT PT.DISCHARGED TODAY. [phone]. HE SAID HE WOULD NOTIFY THE TEAM.
== END 2017-08-24 12:40 | disposition home or self-care (01) | DRG 177 ==
LOC: M.ERS 11:05 → M.ORTHSURG 12:53 → M.TBA-ER 12:53 → M.ORTHSURG 14:22
PROVIDERS: Emergency Medicine Emergency Medical Services; ADMIT Internal Medicine
DX: J15.6 Pneumonia due to other Gram-negative bacteria (principal); J96.22 Acute and chronic respiratory failure with hypercapnia; J96.21 Acute and chronic respiratory failure with hypoxia; J44.1 Chronic obstructive pulmonary disease with (acute) exacerbation; J44.0 Chronic obstructive pulmonary disease with (acute) lower respiratory infection; G89.29 Other chronic pain; M54.9 Dorsalgia, unspecified; M25.569 Pain in unspecified knee; M25.519 Pain in unspecified shoulder; I95.9 Hypotension, unspecified; J84.10 Pulmonary fibrosis, unspecified; Z82.49 Family history of ischemic heart disease and other diseases of the circulatory system; Z87.891 Personal history of nicotine dependence

== ENCOUNTER 2018-03-16 08:28 | Emergency (ER) | payer OTHER ==
[~2018-03-16] VITALS: Ht 180.3 cm; Wt 61.2 kg
[~2018-03-16 08:28] MED LIST changes: +LEVAQUIN 500 M500 M3 PO
[2018-03-16] MEDS ORDERED: SINGULAIR 10 MG10 M1 PO (08:34)
[2018-03-16 09:05] LABS: HEMATOCRIT 45.6 % (42.0-52.0); HEMOGLOBIN 15.2 gm/dL (14.0-18.0); MCH 30.6 pg (26.0-34.0); MCHC 33.4 g/dL (28.0-37.0); MCV 91.5 fL (80.0-100.0); MPV 8.1 fl. (7.2-11.1); NUCLEATED RBCS 0 /100WBC; PLATELET COUNT* 266 thou/uL (150-400); RBC 4.98 mil/uL (4.50-6.00); WBC 11.7 thou/uL (4.0-11.0)
[2018-03-16 09:15] LABS: INFLUENZA A ANTIGEN None Detected (None Detect); INFLUENZA B ANTIGEN None Detected (None Detect)
[2018-03-16 09:18] LABS: ANION GAP 6 mmol/L (7-16); BUN 15 mg/dL (7-18); CALCIUM 9.3 mg/dL (8.5-10.1); CHLORIDE 103 mmol/L (98-107); CO2 32 mmol/L (21-32); CREATININE 1.2 mg/dL (0.6-1.3); GLUCOSE 106 mg/dL (70-99); POTASSIUM 3.4 mmol/L (3.5-5.1); SODIUM 141 mmol/L (136-145)
[2018-03-16 09:22] LABS: ALBUMIN 3.5 g/dL (3.4-5.0); ALKALINE PHOSPHATASE 70 U/L (46-116); NT-PRO BRAIN NAT PEPTIDE 146 pg/mL (<300); SGOT 11 U/L (15-37); SGPT 21 U/L (30-65); TOTAL BILIRUBIN 0.8 mg/dL (<0.1-1.0); TOTAL PROTEIN 6.8 g/dL (6.4-8.2); TROPONIN-I LEVEL <0.06 ng/mL (<0.06)
[2018-03-16 09:46] LABS: ABSOLUTE EOSINOPHILS 0.1 thou/uL (0.0-0.7); ABSOLUTE LYMPHOCYTES 1.3 thou/uL (0.8-5.3); ABSOLUTE MONOCYTES 0.7 thou/uL (0.0-1.2); ABSOLUTE NEUTROPHILS 9.6 thou/uL (1.6-8.1); ANISOCYTOSIS 1+; PLATELET ESTIMATE ADEQUATE; POIKILOCYTOSIS 1+
[2018-03-16] MEDS ORDERED: PREDNISONE50 MG PO (10:50)
[2018-03-16] MEDS ORDERED: ZPAK PO (10:50)
[2018-03-16 11:21] VITALS: BP 116/68
--- NOTE | 2018-03-17 12:39 | EKG ---
[place] [address] ELECTROCARDIOGRAM REPORT Name: SHAN GUERRERO JR Room: [facility]#: [id number] Admission: 03/16/18 Attend Phys: Discharge: 03/16/18 Date of : 41 Report #: [id number] THIS REPORT FOR: //name// [facility] ED Test Date: 2018-03-16 Test Time: 08:37:30 Pat Name: SHAN GUERRERO Department: Room: Gender: M Software Integrator: Elmer WILEY : 1945 Requested By: Karan Linton Order Number: [id number] MD: Alexis Linn Measurements Intervals [place] Rate: 115 P: AR: QRS: 100 QRSD: 101 T: 75 QT: 300 QTc: 415 Interpretive Statements sinus tachycardia Left posterior fascicular block artifact noted Nonspecific T abnormalities, lateral leads Compared to ECG 08/21/2017 11:09:06 no change Electronically Signed On 03-17-2018 12:39:20 TINT LAYER by Alexis Linn [email or web address] <ELECTRONICALLY SIGNED> By: Alexis Linn MD, [facility] 03/17/18 1239 6 Alexis Linn MD, [facility] /EPI
== END 2018-03-16 11:21 | disposition home or self-care (01) ==
LOC: M.ERS 08:28
PROVIDERS: Emergency Medicine Emergency Medical Services
DX: J44.1 Chronic obstructive pulmonary disease with (acute) exacerbation (principal); N18.6 End stage renal disease; J96.11 Chronic respiratory failure with hypoxia; G89.29 Other chronic pain; M25.519 Pain in unspecified shoulder; M25.569 Pain in unspecified knee; M54.9 Dorsalgia, unspecified

== ENCOUNTER 2018-06-07 03:08 | Inpatient (IN) | payer OTHER ==
[2018-06-07] VITALS (20 sets, daily range): BP systolic 85–135; BP diastolic 53–100
[~2018-06-07] VITALS: Ht 182.9 cm; Wt 104.3 kg
[~2018-06-07 03:08] MED LIST changes: +PREDNISONE50 MG PO; +ZPAK PO
[2018-06-07] MEDS ORDERED: PREDNISONE 10 M10 MG PO (03:20)
[2018-06-07] MEDS ORDERED: KEFLEX500 M1 PO (03:21)
[2018-06-07] MEDS ORDERED: OXYBUTYNIN 5 MG5 M2 PO (03:22)
[2018-06-07 03:41] LABS: HEMATOCRIT 42.9 % (42.0-52.0); HEMOGLOBIN 14.2 gm/dL (14.0-18.0); MCH 29.9 pg (26.0-34.0); MCHC 33.1 g/dL (28.0-37.0); MCV 90.1 fL (80.0-100.0); MPV 7.6 fl. (7.2-11.1); NUCLEATED RBCS 0 /100WBC; PLATELET COUNT* 264 thou/uL (150-400); RBC 4.76 mil/uL (4.50-6.00); RDW-CV 13.7 % (10.5-14.5); WBC 18.3 thou/uL (4.0-11.0)
[2018-06-07 04:05] LABS: URINE BILIRUBIN NEGATIVE (Negative); URINE BLOOD TRACE (Negative); URINE CLARITY CLEAR; URINE COLOR YELLOW; URINE GLUCOSE-RANDOM 1+ (Negative); URINE KETONES TRACE (Negative); URINE NITRITE-REFLEX NEGATIVE (Negative); URINE PROTEIN TRACE (Negative); URINE SPECIFIC GRAVITY 1.025 (1.005-1.030); URINE UROBILINOGEN 0.2 E.U./dl (0.2-1.0)
[2018-06-07 04:07] LABS: URINE LEUKOCYTES-REFLEX 2+ (Negative)
[2018-06-07 04:09] LABS: ANION GAP 8 mmol/L (7-16); BUN 24 mg/dL (7-18); CHLORIDE 105 mmol/L (98-107); CO2 31 mmol/L (21-32); GLUCOSE 152 mg/dL (70-99); POTASSIUM 4.4 mmol/L (3.5-5.1); SODIUM 144 mmol/L (136-145); TROPONIN-I LEVEL <0.06 ng/mL (<0.06)
[2018-06-07 04:12] LABS: ALBUMIN 3.6 g/dL (3.4-5.0); ALKALINE PHOSPHATASE 60 U/L (46-116); MAGNESIUM 1.6 mg/dL (1.8-2.4); SGOT 22 U/L (15-37); SGPT 27 U/L (30-65); TOTAL BILIRUBIN 0.5 mg/dL (<0.1-1.0); TOTAL PROTEIN 6.8 g/dL (6.4-8.2)
[2018-06-07 04:22] LABS: BE 3.6 mmol/L (-2 to +3); PCO2 41.3 mmHg (35.0-45.0); pH 7.448 (7.340-7.450)
[2018-06-07 04:24] LABS: PO2 369.9 mmHg (75.0-100.0)
[2018-06-07 04:31] LABS: BACTERIA-REFLEX >30 Many /HPF (None Seen); SQUAMOUS 0-3 Few /LPF (0-3); URINE RBC 3-10 Few /HPF (0-2); URINE WBC-REFLEX >25 Many /HPF (0-5); WBC CLUMPS Few (None Seen)
[2018-06-07 04:32] LABS: CASTS None Seen /LPF (None Seen); CRYSTALS None Seen /LPF (None Seen); MUCUS None Seen strn/LPF (None Seen); YEAST-REFLEX Present (None Seen)
[2018-06-07 06:39] LABS: ABSOLUTE BASOPHILS 0.2 thou/uL (0.0-0.2); ABSOLUTE EOSINOPHILS 0.2 thou/uL (0.0-0.7); ABSOLUTE LYMPHOCYTES 1.6 thou/uL (0.8-5.3); ABSOLUTE MONOCYTES 0.9 thou/uL (0.0-1.2); ABSOLUTE NEUTROPHILS 15.4 thou/uL (1.6-8.1); CLUMPED PLTS FEW; PLATELET ESTIMATE ADEQUATE
--- NOTE | 2018-06-07 09:46 | EKG ---
[place] [address] ELECTROCARDIOGRAM REPORT Name: SHAN GUERRERO JR Room: [address] ADM IN M.R.#: [id number] Admission: 06/07/18 Attend Phys: Minerva Joseph MD Discharge: Date of : 41 Report #: [id number] THIS REPORT FOR: //name// [facility] ED Test Date: 2018-06-07 Test Time: 03:12:11 Pat Name: SHAN GUERRERO Department: Room: [facility] Gender: M President Consumer Electronics Company: : 1945 Requested By: Cyndy Pulido Order Number: [id number] MD: Eduin Carnes Measurements Intervals [place] Rate: 142 P: 85 GA: 158 QRS: 146 QRSD: 90 T: 251 QT: 272 QTc: 418 Interpretive Statements Sinus tachycardia Right atrial enlargement Consider right ventricular hypertrophy Borderline T abnormalities, inferior leads Compared to ECG 03/16/2018 08:37:30 Left posterior fascicular block no longer present T-wave abnormality still present Electronically Signed On 06-07-2018 9:46:30 CDT by Eduin Carnes [email or web address] <ELECTRONICALLY SIGNED> By: Eduin Carnes MD, FAC 06/07/18 0946 1 1 Eduin Carnes MD, FAC /EPI
[2018-06-07 11:13] LABS: CALCIUM 8.3 mg/dL (8.5-10.1); CREATININE 1.1 mg/dL (0.6-1.3); MAGNESIUM 1.6 mg/dL (1.8-2.4); POTASSIUM 4.4 mmol/L (3.5-5.1)
[2018-06-07] MEDS ORDERED: AZELASTINE HCL6 ML SPRAY (21:00)
[2018-06-07] MEDS ORDERED: AZELASTINE137 MCG/0. NASAL (21:10)
[2018-06-08] VITALS (8 sets, daily range): BP systolic 100–116; BP diastolic 54–68
[2018-06-08 04:55] LABS: HEMATOCRIT 35.8 % (42.0-52.0); MCH 30.4 pg (26.0-34.0); MCHC 33.7 g/dL (28.0-37.0); MCV 90.4 fL (80.0-100.0); RBC 3.96 mil/uL (4.50-6.00); RDW-CV 13.6 % (10.5-14.5); WBC 19.1 thou/uL (4.0-11.0)
[2018-06-08 05:05] LABS: HEMOGLOBIN 12.1 gm/dL (14.0-18.0)
[2018-06-08 05:15] LABS: ALBUMIN 2.8 g/dL (3.4-5.0); CALCIUM 8.4 mg/dL (8.5-10.1); CREATININE 0.9 mg/dL (0.6-1.3); MAGNESIUM 1.9 mg/dL (1.8-2.4); POTASSIUM 3.8 mmol/L (3.5-5.1); TOTAL BILIRUBIN 0.6 mg/dL (<0.1-1.0); TOTAL PROTEIN 5.9 g/dL (6.4-8.2)
--- NOTE | 2018-06-08 12:13 | CON ---
[address] [address] CONSULTATION Name: SHAN GUERRERO JR Room: [address] IN [facility]#: [id number] Admission: 06/07/18 Attend Phys: Minerva Joseph MD Discharge: Date of : 41 Report #: [id number] THIS REPORT FOR: //name// CC: Gian Joseph DATE OF SERVICE: 06/07/2018 CHIEF COMPLAINT: Pneumothorax, shortness of breath. HISTORY OF PRESENT ILLNESS: He is a 73-year-old gentleman with history of COPD on home inhalers. He was brought to the EMS with respiratory distress, which was acute onset started one day prior to admission. When he arrived, per EMS, the patient was tachypneic, short of breath with oxygen saturations in the 70s. States he took a breathing treatment, did not feel any better and called EMS and started albuterol and CPAP. He denies any chest pain, complaining of severe shortness of breath on admission. He is a former smoker. Since admission to the Emergency Room, chest x-ray was done, which showed pneumothorax noted. He had a left thoracostomy tube. He was admitted to the ICU for further care as he continues to have shortness of breath and his blood pressure was borderline; however, on my exam, blood pressure was stable. He was started on empiric antibiotics as well. PAST MEDICAL HISTORY: COPD, previous history of CHF. ALLERGIES: None. HOME MEDICATION: Was treated with prednisone last time in March, he was on Advair at home. PAST SURGICAL HISTORY: Hernia repair. Chronic hypoxic hypercapnic respiratory failure. FAMILY HISTORY: Heart disease. SOCIAL HISTORY: Quit smoking more than a year ago. REVIEW OF SYSTEMS: A 12-point review of systems: MUSCULOSKELETAL: Back pain. CONSTITUTIONAL: Fatigue. RESPIRATORY: As above. No hemoptysis. History of intermittent wheezing, cough. The cough is mostly dry. Shortness of breath: He is still having shortness of breath at this time even after chest tube placement. Oxygen saturation has improved. Other 14-point review [place] [address] CONSULTATION Name: SHAN GUERRERO JR Room: [address] IN [facility]#: [id number] Admission: 06/07/18 Attend Phys: Minerva Joseph MD Discharge: Date of : 41 Report #: [id number] PHYSICAL EXAMINATION: GENERAL: Alert, cooperative, in distress, having shortness of breath even finishing sentences. CARDIOVASCULAR: Regular rhythm. No murmur. LUNGS: Decreased breath sounds on the left base; however, no wheezing. ABDOMEN: Soft, nontender. EXTREMITIES: No edema. NEUROLOGIC: No focal deficit. LABORATORY AND OTHER DATABASE: Chest x-ray as reviewed above showed left thoracostomy tube and no pneumothorax, chronic changes. An initial chest x-ray was documented that has COPD, emphysema; however, it is not on the interpretation. No definite pneumothorax. A white blood cell count 18,000. Blood gas pH 7.4, pCO2 of 41, pO2 of 369, this was on BiPAP 16/8 on 100%. His creatinine was normal at 1. ASSESSMENT AND PLAN: Acute shortness of breath with associated cough. The patient is known to have chronic obstructive pulmonary disease. He had a chest tube placed for an increased lucency on the left side. At this time, his chest tube, although on suction does not have an air leak, has a possible pneumothorax. Differential diagnoses include bullous disease. Other differential diagnoses include pulmonary embolism, pneumonia, chronic obstructive pulmonary disease exacerbation. For further evaluation, we will obtain chest CTA. Currently, agree with antibiotic treatment. Chronic obstructive pulmonary disease with exacerbation. Agree with antibiotic treatment with azithromycin. I will add steroids daily and to continue bronchodilator treatment. Obtain chest CT as above. Continue to follow up on the patient. Critical care time taking care of the patient was 35 minutes. <ELECTRONICALLY SIGNED> By: Apple Gardiner MD 06/08/18 1213 1238 0047Aevert Gardiner MD /nt
[2018-06-09] VITALS (10 sets, daily range): BP systolic 122–165; BP diastolic 67–91
[2018-06-09 05:10] LABS: HEMATOCRIT 35.8 % (42.0-52.0); HEMOGLOBIN 11.9 gm/dL (14.0-18.0); MCH 29.8 pg (26.0-34.0); MCHC 33.4 g/dL (28.0-37.0); MCV 89.2 fL (80.0-100.0); MPV 8.6 fl. (7.2-11.1); RBC 4.01 mil/uL (4.50-6.00); WBC 13.2 thou/uL (4.0-11.0)
[2018-06-09 05:47] LABS: ALBUMIN 2.9 g/dL (3.4-5.0); CALCIUM 8.7 mg/dL (8.5-10.1); CREATININE 0.8 mg/dL (0.6-1.3); POTASSIUM 3.6 mmol/L (3.5-5.1); TOTAL BILIRUBIN 0.4 mg/dL (<0.1-1.0); TOTAL PROTEIN 6.1 g/dL (6.4-8.2)
[2018-06-10] VITALS: BP 114/69
[2018-06-10 04:00] VITALS: BP 116/82
[2018-06-10 08:15] VITALS: BP 140/78
[2018-06-10 12:16] VITALS: BP 115/71
[2018-06-10 16:10] VITALS: BP 124/72
[2018-06-10 20:10] VITALS: BP 122/58
[2018-06-11] VITALS: BP 135/63
[2018-06-11 03:40] VITALS: BP 138/70
[2018-06-11] MEDS ORDERED: AUGMENTIN 875-1 EACH PO (11:31)
[2018-06-11] MEDS ORDERED: PREDNISONE 10 M10 MG PO (11:31)
[2018-06-11 12:07] VITALS: BP 138/70
[2018-06-11 12:15] VITALS: BP 136/74
== END 2018-06-11 18:37 | disposition home health service (06) | DRG 871 ==
LOC: M.ERS 03:08 → M.ICU 04:38 → M.TBA-ER 04:38 → M.2W 04:38 → M.TBA-ER 07:25 → M.ICU 09:21 → M.2W 06-09 14:55
PROVIDERS: Family Medicine; Personal Emergency Response Attendant; ADMIT Internal Medicine
PROC: 0W9B30Z Drainage of Left Pleural Cavity with Drainage Device, Percutaneous Approach (ICD-10-PCS; principal; 2018-06-07)
PROC: 5A09357 Assistance with Respiratory Ventilation, Less than 24 Consecutive Hours, Continuous Positive Airway Pressure (ICD-10-PCS; principal; 2018-06-07)
PROC: 5A09357 Assistance with Respiratory Ventilation, Less than 24 Consecutive Hours, Continuous Positive Airway Pressure (ICD-10-PCS; 2018-06-10)
DX: A41.9 Sepsis, unspecified organism (principal); J96.22 Acute and chronic respiratory failure with hypercapnia; N39.0 Urinary tract infection, site not specified; E44.0 Moderate protein-calorie malnutrition; I50.9 Heart failure, unspecified; E83.42 Hypomagnesemia; K21.9 Gastro-esophageal reflux disease without esophagitis; G89.29 Other chronic pain; J43.9 Emphysema, unspecified; Z79.899 Other long term (current) drug therapy; Z82.49 Family history of ischemic heart disease and other diseases of the circulatory system; Z87.891 Personal history of nicotine dependence; Z68.31 Body mass index [BMI] 31.0-31.9, adult

== ENCOUNTER 2018-07-09 19:14 | Emergency (ER) | payer OTHER ==
[~2018-07-09] VITALS: Ht 177.8 cm; Wt 60.5 kg
[~2018-07-09 19:14] MED LIST changes: +AUGMENTIN 875-1 EACH PO; +AZELASTINE HCL6 ML SPRAY; +AZELASTINE137 MCG/0. NASAL; +KEFLEX500 M1 PO; +OXYBUTYNIN 5 MG5 M2 PO
[2018-07-09 20:42] LABS: ABSOLUTE LYMPHOCYTES 0.5 thou/uL (0.8-5.3); ABSOLUTE MONOCYTES 0.7 thou/uL (0.0-1.2); ABSOLUTE NEUTROPHILS 7.3 thou/uL (1.6-8.1); BASOPHILS 0.4 %; EOSINOPHILS 0.4 %; HEMATOCRIT 41.6 % (42.0-52.0); HEMOGLOBIN 13.6 gm/dL (14.0-18.0); LYMPHOCYTES 6.3 %; MCH 29.4 pg (26.0-34.0); MCHC 32.6 g/dL (28.0-37.0); MCV 90.1 fL (80.0-100.0); MONOCYTES 8.1 %; MPV 7.2 fl. (7.2-11.1); NUCLEATED RBCS 0 /100WBC; PLATELET COUNT* 266 thou/uL (150-400); POLYS 84.8 %; RBC 4.62 mil/uL (4.50-6.00); WBC 8.6 thou/uL (4.0-11.0)
[2018-07-09 21:13] LABS: CALCIUM 8.9 mg/dL (8.5-10.1); CREATININE 0.8 mg/dL (0.6-1.3); POTASSIUM 4.4 mmol/L (3.5-5.1)
[2018-07-09 21:18] LABS: ALBUMIN 3.3 g/dL (3.4-5.0); TOTAL BILIRUBIN 0.2 mg/dL (<0.1-1.0); TOTAL PROTEIN 6.2 g/dL (6.4-8.2)
[2018-07-09 21:45] VITALS: BP 117/72
--- NOTE | 2018-07-10 14:29 | EKG ---
[place] [address] ELECTROCARDIOGRAM REPORT Name: SHAN GUERRERO JR Room: [facility]#: [id number] Admission: 07/09/18 Attend Phys: Discharge: 07/09/18 Date of : 41 Report #: [id number] THIS REPORT FOR: //name// [facility] ED Test Date: 2018-07-09 Test Time: 19:22:44 Pat Name: SHAN GUERRERO Department: Room: Gender: M Senior Qa Engineer: : 1945 Requested By: Cyndy Pulido Order Number: [id number] MD: Joseph Brown Measurements Intervals [place] Rate: 84 P: 79 FL: 160 QRS: 94 QRSD: 92 T: 74 QT: 352 QTc: 417 Interpretive Statements Sinus rhythm Right axis deviation Compared to ECG 06/07/2018 03:12:11 Right-axis deviation now present Sinus tachycardia no longer present Atrial abnormality no longer present T-wave abnormality no longer present Electronically Signed On 07-10-2018 14:28:57 CDT by Joseph Brown [email or web address] <ELECTRONICALLY SIGNED> By: Joseph Brown MD, [facility] 07/10/18 1428 192 21 Joseph Brown MD, [facility] /EPI
== END 2018-07-09 21:45 | disposition home or self-care (01) ==
LOC: M.ERS 19:14
PROVIDERS: Personal Emergency Response Attendant
DX: J44.1 Chronic obstructive pulmonary disease with (acute) exacerbation (principal); G89.29 Other chronic pain; M54.9 Dorsalgia, unspecified; M25.519 Pain in unspecified shoulder; J96.11 Chronic respiratory failure with hypoxia

== ENCOUNTER 2018-07-15 08:13 | Inpatient (IN) | payer OTHER ==
[~2018-07-15] VITALS: Ht 152.4 cm; Wt 62.6 kg
[2018-07-15 08:47] LABS: BE -0.1 mmol/L (-2 to +3); PCO2 42.1 mmHg (35.0-45.0); pH 7.391 (7.340-7.450)
[2018-07-15 08:50] LABS: PO2 141.3 mmHg (75.0-100.0)
[2018-07-15 08:54] LABS: ABSOLUTE EOSINOPHILS 0.1 thou/uL (0.0-0.7); ABSOLUTE LYMPHOCYTES 0.8 thou/uL (0.8-5.3); ABSOLUTE MONOCYTES 1.1 thou/uL (0.0-1.2); ABSOLUTE NEUTROPHILS 9.6 thou/uL (1.6-8.1); APTT 23.1 Seconds (25.0-31.3); BASOPHILS 0.4 %; EOSINOPHILS 0.5 %; HEMOGLOBIN 14.7 gm/dL (14.0-18.0); INR 0.9; LYMPHOCYTES 6.5 %; MCH 30.3 pg (26.0-34.0); MCHC 33.3 g/dL (28.0-37.0); MCV 90.8 fL (80.0-100.0); MONOCYTES 9.9 %; MPV 7.5 fl. (7.2-11.1); NUCLEATED RBCS 0 /100WBC; PLATELET COUNT* 310 thou/uL (150-400); POLYS 82.7 %; PROTIME 9.7 Seconds (9.20-11.50); RBC 4.85 mil/uL (4.50-6.00); RDW-CV 14.6 % (10.5-14.5); WBC 11.6 thou/uL (4.0-11.0)
[2018-07-15 08:55] LABS: ANION GAP 9 mmol/L (7-16); BUN 21 mg/dL (7-18); CALCIUM 9.2 mg/dL (8.5-10.1); CHLORIDE 109 mmol/L (98-107); CO2 31 mmol/L (21-32); CREATININE 0.9 mg/dL (0.6-1.3); GLUCOSE 113 mg/dL (70-99); POTASSIUM 4.8 mmol/L (3.5-5.1); SODIUM 149 mmol/L (136-145)
[2018-07-15 09:05] LABS: ALBUMIN 3.4 g/dL (3.4-5.0); ALKALINE PHOSPHATASE 61 U/L (46-116); LIPASE 76 U/L (73-393); MAGNESIUM 1.9 mg/dL (1.8-2.4); NT-PRO BRAIN NAT PEPTIDE 208 pg/mL (<300); SGOT 20 U/L (15-37); SGPT 32 U/L (30-65); TOTAL BILIRUBIN 0.4 mg/dL (<0.1-1.0); TOTAL PROTEIN 7.1 g/dL (6.4-8.2); TROPONIN-I LEVEL <0.06 ng/mL (<0.06)
[2018-07-15 13:20] VITALS: BP 119/63
[2018-07-15 13:46] VITALS: BP 119/72
[2018-07-15 14:40] VITALS: BP 131/80
[2018-07-15 15:35] VITALS: BP 138/78
[2018-07-15 21:00] VITALS: BP 129/78
[2018-07-16 07:50] VITALS: BP 111/71
[2018-07-16 16:00] VITALS: BP 131/77
--- NOTE | 2018-07-16 16:58 | EKG ---
[place] [address] ELECTROCARDIOGRAM REPORT Name: SHAN GUERRERO JR Room: [address] ADM IN .R.#: [id number] Admission: 07/15/18 Attend Phys: Jeremy Arredondo Discharge: Date of : 41 Report #: [id number] THIS REPORT FOR: //name// [facility] ED Test Date: 2018-07-15 Test Time: 08:20:33 Pat Name: SHAN STACEYESTUARDO Department: Room: [facility] Gender: M Product Marketing Engineer: NIMCO : 1945 Requested By: David Ortiz Order Number: [id number] MD: Ankit Eason Measurements Intervals [place] Rate: 141 P: 83 MD: 145 QRS: 97 QRSD: 85 T: 28 QT: 262 QTc: 401 Interpretive Statements Sinus tachycardia Multiple premature complexes, vent & supraven Probable left atrial enlargement Right axis deviation Abnormal R-wave progression, late transition Artifact in lead(s) I,II,III,aVR,aVL,aVF,V1,V5,V6 Compared to ECG 07/09/2018 19:22:44 Sinus rate has increased Electronically Signed On 07-16-2018 16:58:08 CDT by Ankit Eason [email or web address] <ELECTRONICALLY SIGNED> By: Ankit Eason MD, [facility] 07/16/18 1658 9 9 Ankit Eason MD, [facility] /EPI
[2018-07-16 20:20] VITALS: BP 111/86
[2018-07-17 07:15] VITALS: BP 120/81
[2018-07-17] MEDS ORDERED: KEFLEX500 M1 PO (10:47)
[2018-07-17] MEDS ORDERED: PREDNISONE 10 M10 MG PO (10:47)
[2018-07-17] MEDS ORDERED: AZITHROMYCIN 2250 MG PO (10:47)
[2018-07-17 11:39] VITALS: BP 120/81
== END 2018-07-17 12:20 | disposition home or self-care (01) | DRG 871 ==
LOC: M.ERS 08:13 → M.TBA-ER 09:23 → M.ORTHSURG 09:23
PROVIDERS: Family Medicine; ADMIT Internal Medicine
PROC: 5A09357 Assistance with Respiratory Ventilation, Less than 24 Consecutive Hours, Continuous Positive Airway Pressure (ICD-10-PCS; principal; 2018-07-15)
DX: A41.9 Sepsis, unspecified organism (principal); J96.21 Acute and chronic respiratory failure with hypoxia; J44.1 Chronic obstructive pulmonary disease with (acute) exacerbation; E44.0 Moderate protein-calorie malnutrition; G89.29 Other chronic pain; M54.9 Dorsalgia, unspecified; Z79.899 Other long term (current) drug therapy; Z99.81 Dependence on supplemental oxygen; Z87.891 Personal history of nicotine dependence; Z68.27 Body mass index [BMI] 27.0-27.9, adult

== ENCOUNTER 2018-07-19 10:19 | Inpatient (IN) | payer OTHER ==
[~2018-07-19] VITALS: Ht 152.4 cm; Wt 63.0 kg
[~2018-07-19 10:19] MED LIST changes: +AZITHROMYCIN 2250 MG PO; -HYDROCODONE-AP1 EAC6 PO; +NORCO PO
[2018-07-19 10:26] VITALS: BP 125/80
[2018-07-19 10:44] LABS: HEMATOCRIT 46.1 % (42.0-52.0); MCH 29.4 pg (26.0-34.0); MCHC 32.6 g/dL (28.0-37.0); MCV 90.2 fL (80.0-100.0); MPV 7.6 fl. (7.2-11.1); NUCLEATED RBCS 0 /100WBC; PLATELET COUNT* 330 thou/uL (150-400); RBC 5.11 mil/uL (4.50-6.00); RDW-CV 14.5 % (10.5-14.5); WBC 13.5 thou/uL (4.0-11.0)
[2018-07-19 10:51] LABS: ANION GAP 10 mmol/L (7-16); BUN 25 mg/dL (7-18); CALCIUM 8.9 mg/dL (8.5-10.1); CHLORIDE 105 mmol/L (98-107); CO2 26 mmol/L (21-32); CREATININE 0.9 mg/dL (0.6-1.3); GLUCOSE 163 mg/dL (70-99); POTASSIUM 4.5 mmol/L (3.5-5.1); SODIUM 141 mmol/L (136-145)
[2018-07-19 10:53] LABS: APTT 21.5 Seconds (25.0-31.3)
[2018-07-19 11:04] LABS: ALBUMIN 3.3 g/dL (3.4-5.0); ALKALINE PHOSPHATASE 59 U/L (46-116); LIPASE 128 U/L (73-393); MAGNESIUM 1.8 mg/dL (1.8-2.4); NT-PRO BRAIN NAT PEPTIDE 183 pg/mL (<300); SGOT 22 U/L (15-37); SGPT 43 U/L (30-65); TOTAL BILIRUBIN 0.5 mg/dL (<0.1-1.0); TOTAL PROTEIN 6.8 g/dL (6.4-8.2); TROPONIN-I LEVEL <0.06 ng/mL (<0.06)
[2018-07-19 11:06] LABS: ABSOLUTE LYMPHOCYTES 1.4 thou/uL (0.8-5.3); ABSOLUTE NEUTROPHILS 12.2 thou/uL (1.6-8.1); ATYPICAL LYMPHS 1 %; PLATELET ESTIMATE ADEQUATE
[2018-07-19 12:05] VITALS: BP 124/92
[2018-07-19 12:15] VITALS: BP 135/79
--- NOTE | 2018-07-19 12:15 | NUR ---
ADMISSION FOR EXACERBATION OF COPD: PATIENT STATES SOB STARTED 0930 THIS AM. PATIENT REC'D TO ROOM 116 FROM ER PER CART. O2 3L/NC. FLUIDS AND LEVAQUIN INFUSING FROM TRANSPORT. IV CATH SITE NOTED WNL. PATIENT NOTED ANXIOUS, NO RESP DISTRESS NOTED. PATIENT NOTED USING ACCESSORY MUSCLES W/ RESPS. PATIENT COOPERATIVE W/ ASSESS AND CARES. PATIENT INSTRUCTED ON BEDREST STATUS. PATIENT STATES VERBALLY OF UNDERSTANDING. ADMISSION EDUCATION OF POC, ROOM AND CALL LIGHT ASSIST DONE. PATIENT STATES VERBALLY OF UNDERSTANDING OF ALL INFORMATON. DTR BRING TRILOGY MACHINE IN FOR PATIENT FROM HOME. RT NOTIFIED. ~TJRN
[2018-07-19 13:49] LABS: CALCIUM 7.9 mg/dL (8.5-10.1); CREATININE 0.8 mg/dL (0.6-1.3); POTASSIUM 4.2 mmol/L (3.5-5.1)
--- NOTE | 2018-07-19 15:36 | EKG ---
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: Elmer WILEY : 1945 Requested By: Karan Linton Order Number: [id number] MD: Alexis Linn Measurements Intervals [place] Rate: 131 P: 84 VT: 135 QRS: 80 QRSD: 105 T: -34 QT: 277 QTc: 409 Interpretive Statements Sinus tachycardia LAE, consider biatrial enlargement Abnormal R-wave progression, late transition Borderline repolarization abnormality Artifact in lead(s) I,II,III,aVR,aVL,aVF,V1,V2,V5,V6 Compared to ECG 07/15/2018 08:20:33 Ventricular premature complex(es) no longer present Electronically Signed On 07-19-2018 15:35:50 CDT by Alexis Linn [email or web address] <ELECTRONICALLY SIGNED> By: Alexis Linn MD, [facility] 07/19/18 1535 1023 1023 Alexis Linn MD, [facility] /EPI
[2018-07-19 16:00] VITALS: BP 125/79
[2018-07-19 23:59] VITALS: BP 118/75
[2018-07-20 04:00] VITALS: BP 131/78
--- NOTE | 2018-07-20 07:11 | NUR ---
PATIENT HAS SLEPT WELL THROUGHOUT THE NIGHT. VSS ON 3L 02 VIA NASAL CANNULA. BREATHING TX'S GIVEN ORDERED VIA RESPIRATORY. PATIENT WORE BIPAP AT NIGHT WHILE SLEEPING FOR 4HRS. LUNGS DIMINISHED. PATIENT URINATING ADEQUATELY. IV IN RIGHT FOREARM-NS @ 100ML/HR. PATIENT INSTRUCTED TO USE CALL LIGHT WHEN NEEDING ASSISTANCE. HOURLY ROUNDS MADE. WILL CONTINUE WITH PLAN OF CARE AND NURSING TO MONITOR.
[2018-07-20 11:39] VITALS: BP 143/78
[2018-07-20 16:30] VITALS: BP 138/77
--- NOTE | 2018-07-20 16:35 | NUR ---
MANAGER SUSTAINABILITY SPOKE TO THE PATIENT TO DISCUSS DISCHARGE PLANNING NEEDS. PATIENT IS KNOWN TO THIS D/C ADULT AND PEDIATRIC NEUROLOGIST FROM HIS MOST RECENT ADMISSION (07/15/18-07/17/18). PATIENT INFORMS THAT 'NOTHING HAS CHANGED IN A WEEK' HES JUST 'HAVING A HARD TIME WITH MY BREATHING'. PATIENT RESIDES AT HOME WITH DTR, USES A TRILOGY AND HOME OXYGEN, AND PLANS TO RETURN HOME AT D/C. PATIENT IS ALSO CURRENTLY ON-SERVICE WITH [facility]. CM WILL REMAIN AVAILABLE TO ASSIST AND FOLLOW NEEDED.
--- NOTE | 2018-07-20 17:50 | NUR ---
PATIENT IS ALERT AND ORIENTED TODAY, PLEASANT. NO COMPLAINTS OF PAIN. VITAL SIGNS ARE STABLE ON 3 LITERS OF OXYGEN THROUGH NASAL CANNULA. PATIENT IS UP STAND BY AND USES A URINAL. CALL LIGHT IS IN REACH WILL CONTINUE TO MONITOR.
[2018-07-20 20:00] VITALS: BP 131/76
[2018-07-21 04:30] LABS: CALCIUM 8.3 mg/dL (8.5-10.1); CREATININE 0.7 mg/dL (0.6-1.3)
--- NOTE | 2018-07-21 05:46 | NUR ---
ASSUMED CARE AT 1930. PATIENT RESTED IN BED ALL NIGHT. VOIDS PER URINAL IN GOOD AMOUNTS. TAKES PILLS WHOLE WITHOUT DIFF. USED TRILOGY AT HS. ANXIOUS TO HAVE HS BREATHING TREATMENT. IVF INFUSING WITHOUT DIFF. O2 3L/NC. CALL LITE IN REACH. HOURLY ROUNDS CONTINUE.
[2018-07-21 09:28] VITALS: BP 126/63
[2018-07-21 16:30] VITALS: BP 128/72
--- NOTE | 2018-07-21 18:45 | NUR ---
ASSUMED CARE OF PATIENT AT APPROX 0730. ALERT AND ORIENTED X4. ASSESSMENT COMPLETED AND CHARTED. VSS ON 3 LITERS 02. NO COMPLAINTS OF SOA. FLUIDS AND SOLUMEDROL INFUSED ORDERED. PATIENT UP STAND BY ASSIST BUT USING URINAL IN BED FOR VOIDING. UP WITH GAIT BELT AND WALKER. FALL PRECAUTIONS IN PLACE. CALL LIGHT WITHIN REACH. HOURLY ROUNDS COMPLETED. NURSING CRISTOBAL CONTINUE TO MONITOR.
[2018-07-21 20:00] VITALS: BP 123/73
--- NOTE | 2018-07-22 06:52 | NUR ---
Alert and oriented x 4. Up with assist to the bathroom with walker and gaitbelt. He has been voiding by urinal this shift. He was very concerned about his home med Azelastine nasal spray, it was brought in by his and the doctor did order that he could take it and pharmacy checked it but the order didn't say that he could keep it bedside. He was upset about that and said his nurse said he could keep it at bedside i said I am your nurse and I'm saying I need to get order saying you can keep it at bedside. He also got upset with RT. He's been asking for breathing treatments not at the scheduled time.
[2018-07-22] MEDS ORDERED: PREDNISONE 10 M10 MG PO (09:36)
[2018-07-22] MEDS ORDERED: KEFLEX500 M1 PO (09:36)
[2018-07-22 10:57] VITALS: BP 123/73
--- NOTE | 2018-07-22 12:36 | NUR ---
ASSUMED CARE OF PATIENT AT APPROX 0730. ALERT AND ORIENTED X4. ASSESSMENT COMPLETED AND CHARTED. VSS ON 3 LITERS 02. NO COMPLAINTS OF PAIN, NAUSEA, OR SOA. FLUIDS INFUSED ORDERED. PATIENT DISCHARGED AT 1230 WITH ALL PERSONAL BELONGINGS, PRESCRIPTIONS AND DISCHARGE INFORMATION.
--- NOTE | 2018-07-23 13:05 | CON ---
[address] [address] CONSULTATION Name: SHAN GUERRERO JR Room: [address]#: [id number] Admission: 07/19/18 Attend Phys: Lion Wynn Discharge: 07/22/18 Date of : 41 Report #: [id number] THIS REPORT FOR: //name// CC: Gian Almaraz REASON FOR CONSULT: Respiratory failure. HISTORY OF PRESENT ILLNESS: This is a 73-year-old male patient with history of advanced COPD, ex-smoker. He is at baseline on 3 liter oxygen in addition to Trilogy at night for the last 3 years. On top of that, he is steroid dependent 10 mg p.o. daily. He had multiple exacerbations in the last few months. His last hospitalization was in May of this year when he presented with COPD exacerbation and pneumothorax. He presented to the hospital with increasing shortness of breath of few days' duration associated with cough and wheezes, although the wheezing was minimal. He had some sputum production, although of nonspecific color. He denied any chest pain, abdominal pain. He denied any fever, chills, or sick contact. He denied any lower extremity edema. He denied any PND or orthopnea. He denied any calf tenderness or pain. ALLERGIES: No known drug allergies. HOME MEDICATIONS: He is on Singulair, Mucinex, hydrocodone, Tylenol, pantoprazole, Stelazine and he has prednisone daily as mentioned above and bronchodilator therapy. PAST MEDICAL HISTORY: COPD, advanced, chronic respiratory failure, on Trilogy and oxygen at home, steroid dependent, history of hernia repair, history of some surgery, history of left knee arthroscopy, history of chronic pain in the shoulder and back. PAST SURGICAL HISTORY: As above. FAMILY HISTORY: Positive for heart disease. SOCIAL HISTORY: He is an ex-smoker after long time smoking, does not smoke anymore. Does not drink alcohol. Does not abuse drugs. REVIEW OF SYSTEMS: GENERAL: He denied any fever or chills. EYES: He denied any visual changes, blurring of vision, lacrimation, red eye. HEAD AND NECK: He denied any sinus drainage, tinnitus, congestion, dysarthria, dysphagia, difficulty swallowing. CARDIOVASCULAR: No PND, no orthopnea, no palpitation, no chest pain. RESPIRATORY: [place] [address] CONSULTATION Name: SHAN GUERRERO JR Room: [address]#: [id number] Admission: 07/19/18 Attend Phys: Lion Wynn Discharge: 07/22/18 Date of : 41 Report #: [id number] GASTROINTESTINAL: He had no nausea, no vomiting, no change in bowel habits. GENITOURINARY: He denied any urgency, frequency, discoloration of the urine, or bleeding in the urine. MUSCULOSKELETAL: He denied any joint pain, swelling or deformity. PSYCHIATRIC: He denied any anxiety or depression. All systems reviewed with the patient and negative other than as mentioned above. PHYSICAL EXAMINATION: GENERAL: He is lying in bed on 3 liter oxygen, awake, alert, oriented, tolerating diet, not in distress, speaks in full sentences. VITAL SIGNS: Temperature 36.6, pulse rate 85, respiratory rate 21, blood pressure 131/78. HEAD: Normocephalic, atraumatic. EYES: Pupils are reactive to light. ORAL CAVITY: Moist mucous membrane. Mallampati of 2-3. NECK: Full range of movement. Trachea is central. No lymphadenopathy. ENT: External ears look healthy and normal. Nasal cavity, patent passages. CHEST: Diminished air movement bilateral, prolonged expiratory phase with occasional wheezes. HEART: S1, S2, no murmur. ABDOMEN: Benign, soft, lax, nontender, positive bowel sounds. No masses felt. EXTREMITIES: Lower extremity: No edema, no calf tenderness. NEUROLOGIC: Moving 4 extremities spontaneously. No focal weakness. Cranial nerves grossly normal. PSYCHIATRIC: Mood and affect appropriate. Good insight and judgment. LYMPHATICS: No palpable lymph node. LABORATORY DATA: His chest x-ray that was done in the ER did not show acute pathology. I reviewed the chest x-ray images. His white blood count 13.5, hemoglobin 15 with platelets of 330, his INR is 1 with a creatinine of 0.8, BUN of 22, bicarbonate of 26, chloride 108, potassium 4.2. His BNP was not elevated. IMPRESSION: 1. Fluha-ap-pdhuzuk respiratory failure, baseline Trilogy on 3 liter oxygen at home. He is steroid dependent. 2. Chronic obstructive pulmonary disease exacerbation. The patient will be treated as COPD exacerbation. He is on scheduled nebulization treatment in addition to p.r.n. breathing treatment. Continue the Singulair. When he is oxygen down, he uses Trilogy every time he sleeps during the night or during the naps. Monitor electrolytes and replace accordingly. Avoid sedatives. I would continue the IV steroids as he is doing at this point. Eventually, he can be transitioned to p.o. steroids and taper down to his home [address] [address] CONSULTATION Name: SHAN GUERRERO JR Room: [address] IN [facility]#: [id number] Admission: 07/19/18 Attend Phys: Lion Wynn Discharge: 07/22/18 Date of : 41 Report #: [id number] dose. Discussed with the patient in detail. Thank you for the consult. <ELECTRONICALLY SIGNED> By: Davion Walsh MD 07/23/18 1305 0826 [id number] Walsh MD /nt
== END 2018-07-22 12:30 | disposition home or self-care (01) | DRG 189 ==
LOC: M.ERS 10:19 → M.TBA-ER 11:11 → M.ORTHSURG 11:11
PROVIDERS: Emergency Medicine Emergency Medical Services; ADMIT Internal Medicine
PROC: 5A09357 Assistance with Respiratory Ventilation, Less than 24 Consecutive Hours, Continuous Positive Airway Pressure (ICD-10-PCS; principal; 2018-07-19)
DX: J96.21 Acute and chronic respiratory failure with hypoxia (principal); J44.1 Chronic obstructive pulmonary disease with (acute) exacerbation; R65.10 Systemic inflammatory response syndrome (SIRS) of non-infectious origin without acute organ dysfunction; E46 Unspecified protein-calorie malnutrition; R73.9 Hyperglycemia, unspecified; Z68.27 Body mass index [BMI] 27.0-27.9, adult; Z79.899 Other long term (current) drug therapy; Z79.52 Long term (current) use of systemic steroids

== ENCOUNTER 2018-07-24 02:42 | Emergency (ER) | payer OTHER ==
[~2018-07-24] VITALS: Ht 180.3 cm; Wt 63.0 kg
[2018-07-24 03:28] LABS: HEMATOCRIT 44.5 % (42.0-52.0); HEMOGLOBIN 14.3 gm/dL (14.0-18.0); MCH 28.9 pg (26.0-34.0); MCHC 32.2 g/dL (28.0-37.0); MCV 89.8 fL (80.0-100.0); MPV 7.6 fl. (7.2-11.1); NUCLEATED RBCS 0 /100WBC; PLATELET COUNT* 273 thou/uL (150-400); RBC 4.96 mil/uL (4.50-6.00); RDW-CV 14.5 % (10.5-14.5); WBC 15.4 thou/uL (4.0-11.0)
[2018-07-24 03:31] LABS: BE 7.3 mmol/L (-2 to +3); PCO2 44.8 mmHg (35.0-45.0); PO2 70.4 mmHg (75.0-100.0); pH 7.472 (7.340-7.450)
[2018-07-24 03:46] LABS: CALCIUM 8.2 mg/dL (8.5-10.1); CREATININE 0.7 mg/dL (0.6-1.3); POTASSIUM 3.2 mmol/L (3.5-5.1)
[2018-07-24 03:51] LABS: ALBUMIN 3.2 g/dL (3.4-5.0); TOTAL BILIRUBIN 0.6 mg/dL (<0.1-1.0); TOTAL PROTEIN 5.9 g/dL (6.4-8.2)
[2018-07-24 05:16] LABS: ABSOLUTE LYMPHOCYTES 0.8 thou/uL (0.8-5.3); ABSOLUTE MONOCYTES 0.9 thou/uL (0.0-1.2); ABSOLUTE NEUTROPHILS 13.7 thou/uL (1.6-8.1); PLATELET ESTIMATE ADEQUATE
[2018-07-24 05:17] LABS: ANISOCYTOSIS 1+; POIKILOCYTOSIS 1+
[2018-07-24 08:00] VITALS: BP 138/84
--- NOTE | 2018-07-24 15:42 | EKG ---
[place] [address] ELECTROCARDIOGRAM REPORT Name: SHAN GUERRERO JR Room: [facility]#: [id number] Admission: 07/24/18 Attend Phys: Discharge: 07/24/18 Date of : 41 Report #: [id number] THIS REPORT FOR: //name// [facility] ED Test Date: 2018-07-24 Test Time: 02:52:45 Pat Name: SHAN GUERRERO Department: Room: Gender: M Biology Tutor: TERRELL : 1945 Requested By: Cyndy Pulido Order Number: [id number] Pietro MD: Eduin Carnes Measurements Intervals [place] Rate: 100 P: 81 FL: 144 QRS: 94 QRSD: 98 T: 78 QT: 339 QTc: 438 Interpretive Statements Sinus tachycardia Right axis deviation Compared to ECG 07/19/2018 10:23:20 Right-axis deviation now present Electronically Signed On 07-24-2018 15:42:40 CDT by Eduin Carnes [email or web address] <ELECTRONICALLY SIGNED> By: Eduin Carnes MD, [facility] 07/24/18 1542 1 1 Eduin Carnes MD, [facility] /EPI
== END 2018-07-24 08:00 | disposition home or self-care (01) ==
LOC: M.ERS 02:42
PROVIDERS: Personal Emergency Response Attendant
DX: J44.1 Chronic obstructive pulmonary disease with (acute) exacerbation (principal); J96.11 Chronic respiratory failure with hypoxia

== ENCOUNTER 2018-09-02 21:54 | Inpatient (IN) | payer OTHER | END 2018-09-06 12:30 | disposition hospice, home (50) | DRG 177 | LOC: M.ERS 21:54 → M.TBA-ER 23:00 → M.2W 09-03 00:35 | PROVIDERS: ADMIT Internal Medicine | PROC: 5A09357 Assistance with Respiratory Ventilation, Less than 24 Consecutive Hours, Continuous Positive Airway Pressure (ICD-10-PCS; principal; 2018-09-02) | PROC: 5A09357 Assistance with Respiratory Ventilation, Less than 24 Consecutive Hours, Continuous Positive Airway Pressure (ICD-10-PCS; 2018-09-03) | PROC: 5A09357 Assistance with Respiratory Ventilation, Less than 24 Consecutive Hours, Continuous Positive Airway Pressure (ICD-10-PCS; 2018-09-04) | PROC: 5A09357 Assistance with Respiratory Ventilation, Less than 24 Consecutive Hours, Continuous Positive Airway Pressure (ICD-10-PCS; 2018-09-06) | DX: J15.6 Pneumonia due to other Gram-negative bacteria (principal); J96.22 Acute and chronic respiratory failure with hypercapnia; J96.21 Acute and chronic respiratory failure with hypoxia; J44.1 Chronic obstructive pulmonary disease with (acute) exacerbation; R65.10 Systemic inflammatory response syndrome (SIRS) of non-infectious origin without acute organ dysfunction; G89.29 Other chronic pain; M54.9 Dorsalgia, unspecified; M25.519 Pain in unspecified shoulder; J20.9 Acute bronchitis, unspecified; Z51.5 Encounter for palliative care; Z79.52 Long term (current) use of systemic steroids; Z82.49 Family history of ischemic heart disease and other diseases of the circulatory system; Z87.891 Personal history of nicotine dependence ==